=== PATIENT | female | born 1955 | race Caucasian/White ===

== ENCOUNTER → 2019-01-27 | Outpatient (CLI) | payer OTHER ==
[~2019-01-27] MED LIST: REGADENOSON 0.4 MG/5 ML DISP.SYRIN. IV ONE
--- NOTE | 2019-01-27 13:15 | RAD ---
MR#: [id number] Date of Study: 01/27/2019 Ordering Physician: ERINN MAHER, Referring Physician: MARIO LARA Tech: RT Uriel (R) (N) APPROVED REPORT Test Type: Pharmacological Stress Nurse/Tech: Adela Levin R.N. Test Indications: C/P Cardiac History: HTN,SMOKER Medications: See Electronic Medical Record Medical History: See Electronic Medical Record Resting ECG: SB Resting Heart Rate: 54 bpm Resting Blood Pressure: 105/51mmHg Pretest Chest Pain: No chest pain Nurse/Tech Notes S!S2, lungs CTA Consent: The procedure was explained to the patient in lay terms. Informed consent was witnessed. Ran eout was entered into [employer]. History and Stress Test performed by RT Tianna (R) (N) Pharm. Details Pharmacologic stress testing was performed using 0.4mg per 5ml of regadenoson given intravenously ove r 7-10 seconds. Stress Symptoms SOB, Jaw tightness that quickly resolved, hands tingling POST EXERCISE Reason for Termination: Infusion complete Max HR: 89 bpm Max Blood Pressure: 147/55mmHg Blood Pressure response to exercise: Normal blood pressure response during stress. Heart Rate response to exercise: wnl Chest Pain: No. Arrhythmia: No. [address] Change: No. INTERPRETATION Stress EKG Conclusion: Baseline EKG showed sinus rhythm. No ischemic changes at peak stress. PVC's w ithout any significant arrhythmias. Imaging Protocol IMAGE PROTOCOL: Rest Tc-99m/stress Tc-99m 1 day Rest: Stress: Viability: Radiopharm.Tc99m XfhxkrfmwKb04n Sestamibi Azcp21lJf 32.1mCi Duration 1515min. Img Date 01/27/2019 01/27/2019 Inj-Img Fjjm84qyw. 60min. Rest Admin Site:IV - Right AntecubitalAdministrator:RT Tianna (Kleber)(N) Stress Admin Site: IV - Right AntecubitalAdministrator: RT Tianna (R)(N) STRESS DATA End Diast. Vol.98.0mlLVEDV index BSA53.0ml End Syst. Vol.29.0mlLVESV index BSA16.0ml Myocardial Sewo835.0gEject. Lgmyxxbr43.0% Stress Scores Regional WT0.00Summed WT0.00 Regional WM0.00Summed WM0.00 LV Perfusion Scintigraphic images showed fixed anterior wall defect most probably breast attenuation artifact base d on normal wall motion. No other fixed or reversible defects seen. Wall Motion Normal left ventricle systolic function with ejection fraction calculated at 70%. LV Perf. Quant 17 Seg. SSS12.00 17 Seg. SRS7.00 17 Seg. SDS10.00 Stress Defect Extent (% LAD)16.90Rest Defect Extent (% LAD)5.60Rev. Defect Extent (% LAD)16.90 Stress Defect Extent (% LCX) 55.00Rest Defect Extent (% LCX)3.80Rev. Defect Extent (% LCX)55.00 Stress Defect Extent (% RCA)0.00Rest Defect Extent (% RCA)25.60Rev. Defect Extent (% RCA)0.00 Stress Defect Extent (% COURTNEY)16.30Rest Defect Extent (% COURTNEY)12.00Rev. Defect Extent (% COURTNEY)16.30 Conclusion 1. Regadenoson cardioisotope stress test showed breast attenuation artifact without any definite evid ence of ischemia or infarct. 2. Normal left ventricular systolic function with ejection fraction calculated at 70%. 3. Low risk for cardiac events. Signed by : Jerry Moran, Electronically Approved : 01/27/2019 13:14:41
== END | disposition home or self-care (01) ==
LOC: NM 09:49
PROVIDERS: ATTEND Internal Medicine Cardiovascular Disease
DX: R07.9 Chest pain, unspecified (principal); I10 Essential (primary) hypertension; Z87.891 Personal history of nicotine dependence
CPT/HCPCS: 78452; 93017; A9500; J2785

== ENCOUNTER → 2019-02-21 | Outpatient (CLI) | payer OTHER ==
--- NOTE | 2019-02-21 11:54 | CARD ---
MR#: [id number] Date of Study: 02/21/2019 Ordering Physician: ERINN MAHER, Referring Physician: ERINN MAHER, Tech: Meryl Augustine [facility] APPROVED REPORT EXAM: Two-dimensional and M-mode echocardiogram with Doppler and color Doppler. Other Information Quality : Good INDICATION Chest Pain RISK FACTORS Smoking 2D DIMENSIONS RVDd2.9 (2.9-3.5cm)Left Atrium(2D)3.3 (1.6-4.0cm) IVSd0.9 (0.7-1.1cm)Aortic Root(2D)2.8 (2.0-3.7cm) LVDd5.4 (3.9-5.9cm)LVOT Diameter2.2 (1.8-2.4cm) PWd0.9 (0.7-1.1cm)LVDs3.8 (2.5-4.0cm) FS (%) 29.8 %SV79.5 ml LVEF(%)56.5 (>50%) Aortic Valve AoV Peak Andrea.141.0cm/sAoV VTI28.7cm AO Peak GR.8.0mmHgLVOT Peak Andrea.103.8cm/s AO Mean GR.4mmHgAVA (VMAX)2.78cm2 KIKE (VTI)3.30cm2 Mitral Valve MV E Kurojiru863.1cm/sMV DECEL TGGO610nl MV A Nwpucmgt73.5cm/sE/A Ratio1.4 Tricuspid Valve TR P. Qaobcohz887ae/sRAP UVHUPGTC5sxZa TR Peak Gr.46rpLdLPSF91wqLg Pulmonary Vein S1 Qrlrbvvz65.8cm/sD2 Wviyhjep99.5cm/s LEFT VENTRICLE The left ventricle is normal size. There is normal left ventricular wall thickness. The left ventricu lar systolic function is normal. The Ejection Fraction is 55-60%. There is normal LV segmental wall m otion. RIGHT VENTRICLE The right ventricle is normal size. The right ventricular systolic function is normal. ATRIA The left atrium size is normal. The right atrium size is normal. The interatrial septum is intact wit h no evidence for an atrial septal defect or patent foramen ovale as noted on 2-D or Doppler imaging. AORTIC VALVE The aortic valve is calcified but opens well. Doppler and Color Flow revealed no significant aortic r egurgitation. There is no significant aortic valvular stenosis. MITRAL VALVE The mitral valve is calcified but opens well. There is no evidence of mitral valve prolapse. There is no mitral valve stenosis. Doppler and Color-flow revealed trace mitral regurgitation. TRICUSPID VALVE The tricuspid valve is normal in structure and function. Doppler and Color Flow revealed mild tricusp id regurgitation. There is mild pulmonary hypertension. The PA pressure was estimated at 32 mmHg. The re is no tricuspid valve stenosis. PULMONIC VALVE The pulmonic valve is not well visualized. Doppler and Color Flow revealed no pulmonic valvular regur gitation. There is no pulmonic valvular stenosis. GREAT VESSELS The aortic root is normal in size. The ascending aorta is mildly dilated at 3.3 cm. The IVC is normal in size and collapses >50% with inspiration. PERICARDIAL EFFUSION There is no evidence of significant pericardial effusion. Critical Notification Critical Value: No <Conclusion> The left ventricular systolic function is normal. The Ejection Fraction is 55-60%. There is normal LV segmental wall motion. Trace mitral regurgitation. Mild tricuspid regurgitation. The PA pressure was estimated at 32 mmHg. There is no evidence of significant pericardial effusion. Signed by : Jerry Moran, Electronically Approved : 02/21/2019 11:54:10
== END | disposition home or self-care (01) ==
LOC: ECHO 09:57
PROVIDERS: ATTEND Internal Medicine Cardiovascular Disease
DX: I08.3 Combined rheumatic disorders of mitral, aortic and tricuspid valves (principal); I27.20 Pulmonary hypertension, unspecified; F17.200 Nicotine dependence, unspecified, uncomplicated
CPT/HCPCS: 93306